=== PATIENT | male | born 1950 | race Caucasian/White ===

== ENCOUNTER → 2016-06-04 | Outpatient (CLI) | payer OTHER ==
[~2016-06-04] VITALS: Ht 180.3 cm; Wt 114.6 kg
[~2016-06-04] MED LIST: ALLOPURINOL 10100 M1 PO; ALLOPURINOL 30300 M2 PO; ASPIR 8181 M1 PO; ASPIRIN325; ATORVASTATIN CA40 MG PO; BENICAR20 MG PO; CYCLOBENZAPRINE10 MG PO; EFFIENT10 MG PO; FOLIC ACID 40400 MC1 PO; FOLIC ACID20 MG PO; HYDROCODONE-AP1 EAC6 PO; HYDROCORTISONE VAL TOP; LAMISIL250 MG; LIPITOR 10 MG10 M1 PO; LISINOPRIL10 MG PO; LOPRESSOR50 PO; METHOTREXATE 22.5 MG PO; NABUMETONE 500500 M1 PO; NEURONTIN 300300 M1 PO; NORCO 10-325 T1 EACH PO; NORCO 5-325 TA1 EACH PO; NORTRIPTYLINE H25 M3 PO; OMEPRAZOLE 20 M20 M1 PO; PERCOCET 10-321 EACH PO; PLAVIX 75 MG TA75 M1 PO; PRILOSEC40 MG PO; SIMVASTATIN40 MG PO; TIZANIDINE HCL4 MG PO; TOPROL XL25 MG PO; TOPROL XL50 MG PO; TREXALL10 MG PO; VITAMIN D1000 UNI1 PO; ZOCOR 10 MG TAB10 MG PO; ZOCOR20 MG PO
--- NOTE | ~2016-06-04 | HPC ---
[facility] [address] [place] [address] PAIN MANAGEMENT CONSULTATION Name: SHAHIDA CHÁVEZ Room #: REG JHON Meera#: [id number] Admission: 06/04/16 Attend Phys: Rafael Madrid DO Discharge: Date of : 50 Report #: [id number] THIS REPORT FOR: //name// CC: Rafael Khan DATE OF SERVICE: 06/04/2016 DATE OF SERVICE: 06/04/2016 CHIEF COMPLAINT: Left neck pain, mid back pain status post fall. HISTORY OF PRESENT ILLNESS: As you know, patient is a very pleasant 65-year-old male returning in followup visit reporting pain score around 4/10. He apparently sustained a fall backwards onto a stair where he broke a 2 x 6 with his back. He has been experiencing mid back pain from this fall. evaluation to his primary care physician, who advised to follow up with us. He is also experiencing neck pain that is in his typical distribution secondary to arthritic changes and muscle spasming. He has returned today in followup visit for further evaluation. He indicates pain is sharp and stabbing, exacerbated with lifting his pillow turning his head, and deep breathing. He has undergone no imaging studies after this recent fall where he broke a 2 x 6 with his mid back. ALLERGIES: No known drug allergies. CURRENT MEDICATIONS: Aspirin, cholecalciferol, folic acid, allopurinol, metoprolol, omeprazole, atorvastatin, methotrexate, Lamisil, oxycodone, nabumetone. SOCIAL HISTORY: The patient denies tobacco, alcohol or IV illicit drug use. He does admit to an occasional alcoholic beverage. He is retired. He is unaccompanied today. PHYSICAL EXAMINATION: VITAL SIGNS: Blood pressure 114/84, pulse 89, respiratory rate 16, unlabored. The patient 98% on room air. Height 5 feet 11 inches tall, weight 252.6 pounds, BMI calculated 35.2. GENERAL: Well developed, well nourished, well hydrated 65-year-old male appearing stated age, placing current pain score 4/10. HEENT: Normocephalic, atraumatic. Pupils equal, round, reactive to light. Extraocular muscles are intact. Sclerae nonicteric, without injection. EXTREMITIES: Show no clubbing, no cyanosis, no edema. MUSCULOSKELETAL: The patient has a large ecchymotic lesion over the mid thoracic area on the right. The area of bruising measures approximately [address] [place] [address] PAIN MANAGEMENT CONSULTATION Name: SHAHIDA CHÁVEZ Room #: REG [facility]#: [id number] Admission: 06/04/16 Attend Phys: Rafael Madrid DO Discharge: Date of : 50 Report #: [id number] inches x 3 inches. There is definitive palpatory tenderness around this site. Deep inhalation and exhalation does not tended to worsen symptoms. There appears to be full range of motion of the musculature in the area. He also has palpatory tenderness of the cervical spine. Deep palpation of the upper cervical region causes intensification of pain in typical pain distribution. There are multiple tender points, no specific trigger points, movement of the cervical spine is restricted due to pain mainly with lateral flexion to the left and rotation to the left and mild restriction of motion to the extension. ASSESSMENT: 1. Cervical spondylosis without radiculopathy. 2. Muscle spasms of the cervical spine. 3. Cervical degeneration. 4. Myofascial pain status post fall. 5. Chronic intractable pain. PLAN: 1. The patient returns today in followup visit indicating a recent fall, he sustained while exiting his cheondoism. Apparently, he slipped and fell on the stairs, falling backward hitting a 2 x 6 breaking the board with his back. He did not seek evaluation after the cheondoism services, but did discuss this with his primary care physician the other day. No imaging studies were obtained. It does not appear the patient is suffering from any rib fractures, though he has a fairly significant bruising of the mid thoracic area as indicated above. We discussed that the patient that options for treatment at this time would be muscle relaxant and nonsteroidal anti-inflammatory and pain medication. This will also help with the patient's chronic neck pain issues. The patient and I did discuss that if his symptoms do not improve, we would look towards imaging of the cervical spine once again to determine if a new pathology exists that we need to address more fully. The patient is agreeable with the plan and does wish to trial medications initially, as he believes he may have exacerbated his neck pain trying to protect his head during the backward fall. Again, I do not feel the patient is suffering any fractured ribs. He has full mobility to the area, though he is quite tender to palpation. 2. The patient will be started on hydrocodone 5/325. So, given the patient 1 tab every 5 hours p.r.n. for pain, #120s to take these as necessary for pain control. He is not to rely on the medication prophylactically. He is to watch for any side effects such as somnolence, decreased mental acuity, disorientation, confusion and constipation. If he notes any side effects, contact our clinic for further instructions. 3. The patient will be restarted on nabumetone 500 mg dose 1 tab p.o. t.i.d. I have given the patient #90 tablets. This will help with the inflammatory processes promoting his neck pain and his mid back pain status post fall. 4. The patient was provided a prescription of cyclobenzaprine 10 mg dose 1 tab every 8 hours p.r.n. for muscle spasming. He was given #90 tablets, no refills, advised not to drive or operate heavy equipment while on this medication. [facility] [address] [place] [address] PAIN MANAGEMENT CONSULTATION Name: SHAHIDA CHÁVEZ Room #: REG [facility]#: [id number] Admission: 06/04/16 Attend Phys: Rafael Madrid DO Discharge: Date of : 50 Report #: [id number] 5. The patient was given exercises and gentle stretching and mobility exercises for his cervical region, the patient will begin these today. Utilize then on a daily basis at least twice a day, once in the morning, once in the late afternoon to keep mobility of the neck as optimized as possible. 6. We will see the patient back in followup visit, possibly in about 2 weeks if he is not doing better prior to that time, we may send the patient for MRI before our return visit. He will contact her clinic in approximately 9 days to advise of improvement. <ELECTRONICALLY SIGNED> By: Rafael Madrid DO 06/10/16 1243 [id number] 1219 Rafael Madrid DO /nt
[2016-06-04 08:51] VITALS: BP 114/84
== END ==
LOC: PAIN 07:05
DX: M47.812 Spondylosis without myelopathy or radiculopathy, cervical region (principal); M50.30 Other cervical disc degeneration, unspecified cervical region; G89.4 Chronic pain syndrome

== ENCOUNTER → 2019-08-03 | Outpatient (CLI) | payer OTHER ==
[~2019-08-03] VITALS: Ht 180.3 cm; Wt 117.6 kg
[2019-08-03 13:58] VITALS: BP 139/89
--- NOTE | 2019-08-03 14:14 | NUR ---
Pain Clinic Assessment: 1. History of Osteoarthritis: KNEES BACK HANDS NECK History of Rheumatoid Arthritis: Not Applicable 2. Height: 5 ft. 11 in. 180.3 cm. Weight: 259.2 lb. oz. 117.573 kg. Patient's BMI: 36.2 3. Vital Signs: BP: 139/89 Pulse: 69 Resp: 18 Temp: 02 Sat: 97 ECG Mon: 4. Pain Intensity: 5-6 5. Fall Risk: Dizziness: N Needs help standing or walking: N Fallen in the last 3 months: N Fall risk comments: 6. Patient on Blood Thinner: None 7. History of Hypertension: Y 8. Opioid Therapy greater than 6 weeks: N Opiate Contract Signed: 9. Risk Assessment Tool Provided: 0-LOW RISK 10. Functional Assessment Tool: 11. Recreational Drug Use: Never Drug Type: Tobacco Use: Never Smoker Tobacco Type: Amount or Packs/day: How Many Years: Alcohol Use: No Frequency: Quant:
--- NOTE | 2019-08-09 10:50 | HPC ---
[facility] [place] [place] [address] [place] [address] PAIN MANAGEMENT CONSULTATION Name: SHAHIDA CHÁVEZ Room #: REG JHON Damon.#: [id number] Admission: 08/03/19 Attend Phys: Rafael Madrid DO Discharge: Date of : 50 Report #: [id number] THIS REPORT FOR: cc: Rafael Olivarez David A. MD Johnson, James E. DO ~ DATE OF SERVICE: 08/03/2019 CHIEF COMPLAINT: Low back pain, bilateral buttock and posterolateral thigh pain. HISTORY OF PRESENT ILLNESS: As you know, the patient is a 68-year-old male who reports onset of back pain that began December 2018. The patient denies specific injury or trauma that may have led to symptom development. 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 He has just recently retired and is now addressing his ongoing back pain issues. He has trialled [id number] medications as well as chiropractic manipulation, both of which have provided only transient improvement. Due to lack of improvement with conservative treatment options, he sought evaluation through his primary care team who advised a referral to our clinic to discuss treatment options. The patient has undergone no imaging studies that are present with him today. He states he has not had any imaging since 2017. The patient describes the pain as periodic. He indicates pain is burning, sharp, numbness and tingling when describing symptoms. He places current pain score at 3/10, daily average of 5-6/10, worst pain has been is 8/10. The patient states the pain is exacerbated with virtually every activity. Pain is improved with heat and cold compresses as well as rest and relaxation. He has been referred to our service to discuss treatment options for suspected lumbar radiculopathy. PAST MEDICAL HISTORY: 1. Hypertension. 2. Degenerative joint disease. 3. Osteoarthritis. 4. History of basal cell carcinoma. 5. Gout. 6. Gastroesophageal reflux disease. 7. Dyslipidemia. 8. Coronary artery disease. PAST SURGICAL HISTORY: Lumbar spine surgery in 1979, wrist surgery in 2005 percutaneous cardiac stenting in 2006, 2009 and 2017, bilateral cataract surgery. [facility] [address] [place] [address] PAIN MANAGEMENT CONSULTATION Name: SHAHIDA CHÁVEZ [facility] [id number] Admission: 08/03/19 Attend Phys: Rafael Madrid DO Discharge: Date of : 50 Report #: [id number] SOCIAL HISTORY: The patient denies tobacco, alcohol, IV or illicit drug use. 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 He is trying to obtain disability benefits. He is not in litigation in regards to pain. He is unaccompanied at today's visit. REVIEW OF SYSTEMS: Positive for weight gain, fatigue and weakness, frequent and recurrent headaches, wearing corrective eyewear, cataracts, chronic eye disease, heart trouble, coronary artery disease, status post percutaneous stenting, chest pain, rectal bleeding, nocturia, sexual difficulty, numbness and tingling sensations, chronic low back pain. All other review of systems negative per 12-point review of systems other than those listed in history of present illness. Pain impact score 24/70, indicating moderate interference of daily activities secondary to pain. ALLERGIES: No reported drug allergies. CURRENT MEDICATIONS: Methotrexate 2.5 mg 10 tabs once a week, hydrochlorothiazide 12.5 mg once a day, vitamin D3 5000 mcg once a day, aspirin 81 mg per day, atorvastatin 40 mg per day, folic acid 400 mg once a day, gabapentin 100 mg twice a day, omeprazole 40 mg once a day, Coenzyme Q 100 mg per day, losartan 25 mg per day, allopurinol 300 mg once a day. IMAGING: No imaging available. PQRS: The patient has known arthritic changes of the bilateral knees, lumbar spine, bilateral hands and neck. He is not treated for rheumatoid arthritis. He is placing pain intensity at 5-6/10. He is not a fall risk, has not had a fall in last 3 months. He reports he is not on any blood thinners. He is treated for hypertension. He is not on chronic opioids and does have a low opioid addiction potential. Pain impact score 24/70, [id number] interference of daily activities secondary to pain. PHYSICAL EXAMINATION: VITAL SIGNS: Blood pressure 139/89, pulse 69, respiratory rate 18 and unlabored. The patient is 97% on room air. Height 5 feet 11 inches tall, weight 259 pounds, BMI calculated 36.2. GENERAL: Well-developed, well-nourished, well-hydrated 68-year-old male. He appears his stated age. He is placing current pain score at 5-6/10. HEENT: Normocephalic, atraumatic. Pupils equal, round, reactive to light. Extraocular muscles are intact. NEUROLOGIC: Speech fluent. The patient deemed a good historian. LUNGS: Clear. No wheeze, rhonchi or rales. CARDIOVASCULAR: Regular. No appreciable gallop. No rub. [facility] [address] [place] [address] PAIN MANAGEMENT CONSULTATION Name: SHAHIDA CHÁVEZ Room #: REG JHON Estes#: [id number] Admission: 08/03/19 Attend Phys: Rafael Madrid DO Discharge: Date of : 50 Report #: [id number] ABDOMEN: Soft, mildly obese, normoactive bowel sounds. EXTREMITIES: Show no clubbing, no cyanosis, no edema. MUSCULOSKELETAL: Lower extremity strength equal and symmetrical, 5/5. He appears to be intact to light touch from L1 through S2 dermatomes. Seated straight leg raising negative. Supine straight leg raising is positive with radiation of symptoms to the posterolateral thigh on the right. Roberto Carlos's test is negative. Modified Gaenslen's positive for some axial low back pain. Ankle clonus negative. Babinski is negative. Gait appears normal. The patient is able to toe walk, heel walk without difficulty. ASSESSMENT: 1. Symptomatic lumbar radiculopathy. 2. Lumbosacral spondylosis with radiculopathy. 3. Chronic intractable pain. PLAN: 1. Based on today's physical exam and the history the patient has provided, the description the patient uses in regards to pain, the likely source of the patient's symptoms is a lumbar radiculopathy. The patient and I discussed the treatment options for lumbar radiculopathy today. We discussed the following with the patient based on the physical exam and the history he provides, unfortunately we did not have any imaging to be able to determine the severity of the pathology he may have in the lumbar region. We discussed physical therapy, stretching exercises and core strengthening as a treatment option. We discussed medication management, escalating his gabapentin dose and possibly adding anti-inflammatory medication if possible. We discussed epidural injection under fluoroscopic guidance to address lumbar radicular symptoms, for which the patient was referred to our clinic. We discussed spinal cord stimulator therapy and ultimately surgical options. After reviewing the risks and benefits of all the proposed treatment options, the patient chose to move forward with a lumbar epidural injection under fluoroscopic guidance. 2. The patient was advised of risks and benefits of a lumbar epidural injection. These risks include but are not necessarily limited to bleeding, bruising, infection, worsening pain, no relief of pain, also risk of temporary or permanent muscle weakness, temporary or permanent nerve damage, possible paralysis, post-dural puncture headache and . The patient states understood and wished to proceed. 3. No medication changes made at today's visit. The patient will continue current medical therapy as previously prescribed. 4. We will see the patient back in followup visit on an as needed basis for possible next in the series of epidural injections. We have taken the liberty of providing the patient a return visit in 30 days, but I have advised him if he does not need this appointment he can cancel if he is doing better. 5. We wish to thank the nurse practitioner, Yamini Machado for the opportunity to see this patient in consultation. We will keep you apprised of his response to treatment as we address suspected lumbar radiculopathy. [place], [place] [address] PAIN MANAGEMENT CONSULTATION Name: KYLERSHAHIDA Jazmin Room #: REG JHON Estes#: [id number] Admission: 08/03/19 Attend Phys: Rafael Madrid DO Discharge: Date of : 50 Report #: [id number] thank you for the opportunity to see the patient in consultation. PROCEDURE NOTE DESCRIPTION OF PROCEDURE: L5-S1 right parasagittal epidural steroid injection under fluoroscopic guidance. This is the first procedure of the first series that the patient is undergoing. After obtaining written consent, the patient was taken back to the fluoroscopy suite, placed in a prone position with pillow under the abdomen to decrease lumbar lordosis. The skin overlying the lumbosacral area was then prepped and draped in aseptic fashion. The L5-S1 vertebral interspace was then identified by AP fluoroscopy. The skin and subcutaneous tissue overlying the target site of injection was anesthetized with 3 mL 1% lidocaine. A 20-gauge Tuohy needle was then advanced under fluoroscopic guidance towards the epidural space using a right parasagittal approach. The epidural space was identified using loss of resistance to air technique. After negative aspiration for heme or cerebrospinal fluid, a total of 1 mL of Omnipaque was injected. A lumbar epidurogram was confirmed using both AP and lateral fluoroscopy. After negative aspiration for heme or cerebrospinal fluid, 5 mL of a solution containing 2 mL 40 mg/mL 80 mg total triamcinolone along with 3 mL of lidocaine 1% was injected in increments. Contrast spread was noted post epidural space. The needle was then retracted approximately half way and needle tract flushed with 1 mL of 1% lidocaine. Needle was then removed. There were no apparent sensory or motor deficits in the lower extremity following the procedure. A sterile bandage was placed over the injection site. The heart rate, pulse, oximetry and blood pressure were continuously monitored after the procedure. There were no apparent complications. The patient tolerated the procedure well and was carefully escorted to the recovery room in stable condition. There were no apparent complications. After meeting discharge criteria, the patient was then discharged home. <ELECTRONICALLY SIGNED> By: Rafael Madrid DO 08/09/19 1050 [id number] Rafael Madrid DO /nt
== END | disposition home or self-care (01) ==
LOC: PAIN 06:46
DX: M54.16 Radiculopathy, lumbar region (principal); G89.29 Other chronic pain; M19.90 Unspecified osteoarthritis, unspecified site; M10.9 Gout, unspecified; K21.9 Gastro-esophageal reflux disease without esophagitis; E78.5 Hyperlipidemia, unspecified; Z98.890 Other specified postprocedural states; Z79.899 Other long term (current) drug therapy; Z85.828 Personal history of other malignant neoplasm of skin; Z98.41 Cataract extraction status, right eye; Z98.42 Cataract extraction status, left eye